=== PATIENT | male | born 1945 | race Caucasian/White ===

== ENCOUNTER → 2016-11-20 | Outpatient (CLI) | payer MEDICARE, BC ==
[~2016-11-20] MED LIST: ACET-2723 PO; ALLO300T2 PO; ASPI-557 PO; ATOR20TA59 PO; GADOBUTROL 10mMol/10ml INJECTION IV ONE; LISI10TA7 PO; SALINE FLUSH 10ml SYRINGE ONE; THYR15TA PO
--- NOTE | 2016-11-20 08:52 | DI ---
Indication: ITS.REASON: M54.9; M54.16 RADICULOPATHY, LUMBAR REGION PROCEDURE: MRI LUMBAR SPINE W/WO CONTRAST: Encounter: Initial Comparison: None Technique: Multiplanar multisequence MR imaging of the lumbar spine was performed with and without contrast. Contrast: 10 mL Gadavist Findings: Alignment of the lumbar spine shows grade 1 retrolisthesis of L3 on L4 which appears degenerative. Mild scoliotic curvature as well. No acute fracture identified. No aggressive bony lesions seen. Conus medullaris terminates normally at L1. Paraspinal soft tissues show bilateral renal cysts. There is also an abdominal aortic aneurysm measuring 3.8 cm in diameter on sagittal image #8. Postcontrast images show no areas of worrisome postcontrast enhancement. A couple small probable hemangiomas and Schmorl's nodes present. No central spinal canal enhancing masses. Segmental analysis: L1-L2: No significant disk herniation, central canal or neural foraminal stenosis. L2-L3: Anterior and lateral bulging without central canal stenosis. No neural foraminal stenosis on the right. Mild bony neural foraminal narrowing on the left. L3-L4: Moderate to severe disk height loss with a broad disk osteophyte complex contributing to moderate central canal stenosis. Mild right and severe left neural foraminal stenosis with impingement on the exiting left L3 nerve root. L4-L5: Focal central protrusion superimposed upon a broad-based disk bulge with degenerative facet and ligamentum flavum hypertrophy cause compression of the thecal sac and severe central canal stenosis. Severe bilateral neural foraminal stenosis with impingement on both exiting L4 nerve roots, greater on the right. L5-S1: Small central protrusion without central canal stenosis. Mild degenerative facet disease with severe bilateral neural foraminal stenosis. Impression: 1. 3.8 cm abdominal aortic aneurysm. Recommend correlation with the patient's history and any prior cross-sectional imaging studies of the abdomen to determine the chronicity of this finding. Follow-up imaging would be recommended in one to two years to document stability. 2. No evidence of metastatic disease to the spine. 3. Degenerative disk and facet disease causing areas of severe central canal and neural foraminal stenosis with nerve root impingement. .
== END ==
LOC: IMA 07:05
PROVIDERS: ATTEND Internal Medicine
DX: I71.4 Abdominal aortic aneurysm, without rupture (principal); M47.26 Other spondylosis with radiculopathy, lumbar region; M47.27 Other spondylosis with radiculopathy, lumbosacral region; M48.06 Spinal stenosis, lumbar region; M51.16 Intervertebral disc disorders with radiculopathy, lumbar region; M54.9 Dorsalgia, unspecified
CPT/HCPCS: 72158; A9585

== ENCOUNTER → 2017-01-04 | Outpatient (CLI) | payer MEDICARE, BC ==
[~2017-01-04] MED LIST changes: -GADOBUTROL 10mMol/10ml INJECTION IV ONE; +IOHEXOL 180 MG/ML 20ml INJECTION ONE; +LIDOCAINE 1% (10mg/ml) 5ml VIAL ONE; +MethylPREDNISolone ACETATE 40mg/1ml ONE; -SALINE FLUSH 10ml SYRINGE ONE
--- NOTE | 2017-01-04 11:59 | DI ---
Indication:ITS.REASON: M48.06,M54.9 SPINAL STENOSIS Procedure:EPIDURAL INJ.SPINE W FLUO CATH LUMBAR EPIDURAL INJECTION: The patient has low back and radicular pain. The patient has not had any previous epidurals. The details of the procedure, including the benefits, risks, and alternatives were explained to the patient. All of their questions were answered. They stated that they understood and wished to proceed. Informed consent was then obtained. A pre-procedural timeout was performed to confirm the correct patient and procedure. Utilizing aseptic technique, local lidocaine anesthetic, and fluoroscopic guidance throughout, a 22-gauge spinal needle was directed into the lumbar epidural space via an interlaminar approach at the L5-S1 level. Contrast was injected to assure proper positioning of the needle tip. A fluoroscopic image was then taken and archived. Subsequently, 120 mg Depo-Medrol was injected into the epidural space. The patient tolerated the procedure well. IMPRESSION: Successful lumbar epidural steroid injection. Fluoroscopy dose: 18.86 mGy (Cumulative air kerma) Mango Sinclair RPA/MICHAEL performed this under my personal supervision. .
== END ==
LOC: IMA 10:01
PROVIDERS: ATTEND Internal Medicine
DX: M48.06 Spinal stenosis, lumbar region (principal)
CPT/HCPCS: 62323; J1030; Q9965